=== PATIENT | male | born 1945 | race Two or more races ===

== ENCOUNTER 2020-02-14 03:08 | Inpatient (IN) | payer MEDICARE ==
[~2020-02-14] VITALS: Ht 175.3 cm; Wt 79.8 kg
[2020-02-14] MEDS ORDERED: ACETAMINOPHEN 325 MG TABLET PO PRN (04:00)
[2020-02-14] MEDS ORDERED: TEMAZEPAM 7.5 MG CAPSULE PO PRN (04:00)
[2020-02-14] MEDS ORDERED: MAGNESIUM HYDROXIDE 30 ML UDC PO PRN (04:00)
[2020-02-14] MEDS ORDERED: MULT-1196 PO (04:27)
[2020-02-14] MEDS ORDERED: OMEP40CA13 PO ×2 (04:29→04:30)
[2020-02-14] MEDS ORDERED: BLOOD SUGAR DIAGNOSTIC 1 EACH STRIP IN ONE (04:30)
[2020-02-14] MEDS ORDERED: OXYB10TA30 PO (04:32)
[2020-02-14] MEDS ORDERED: TELM40TA2 PO (04:33)
[2020-02-14] MEDS ORDERED: CHOL400T11 PO (04:35)
[2020-02-14] MEDS ORDERED: HYDR5TAB13 PO (04:36)
--- NOTE | 2020-02-14 05:41 | NUR ---
GPS ACRYLIC FABRICATOR NOTE: ADMITTED A 75 Y/O MALE ON 5150 FOR DTS. HOLD PLACED 02/13/2020@1430 AT [facility]. PER HOLD, PT CAME TO [facility] FOR RIGHT FLANK PAIN, SHARP, INTERMITTENT, GETS WORSE WITH MOVEMENTS AND URINATION. PT HAS BEEN TO THE SAME ED SEVERAL TIMES AND CT SCAN SHOWS NO KIDNEY STONES. DURING EVALUATION BY THE EMERGENCY DEPARTMENT MD, PT EXPRESSED THAT HE HAS BEEN HAVING THOUGHTS OF SUICIDE OVER THE LAST FEW MONTHS DUE TO CHRONIC PAIN, AND HAS BEEN THINKING "I WISH I COULD JUST END IT ALL RIGHT NOW". WHEN ASKED ABOUT SPECIFIC THOUGHTS, PT STATES HE HAS THOUGHTS OF JUMPING OFF A MEL. UPON FACE TO FACE EVALUATION IN THIS UNIT, PT IS A/O 3, BLUNT AFFECT, TALKATIVE BUT COOPERATIVE, STEADY GAIT, OBEYS COMMAND. UNABLE TO SIGN ADMISSION PAPERS DUE TO BEING TIRED. BLOOD SUGAR 127, MRSA DONE, SKIN ASSESSMENT DONE AND PICTURE PLACED IN CHART. PT MEDICAL HX INCLUDES HTN, BPH, CHRONIC NONSPECIFIC ABDOMINAL PAIN, ADRENAL INSUFFICIENCY, AND PANHYPOPITUITARISM. PT BELONGING WERE CHECKED AND PLACED IN SAFE, NO CONTRABANDS. PT RIGHTS DISCUSSED AND PT HANDBOOK PROVIDED. GUIDE TO PRESCRIPTION MEDICATION GIVEN. PT WILL BE UNDER THE CARE OF DR RAE PSYCHIATRIST AND DR LYNNE INTERNAL MEDICAINE. ORIENTED TO UNIT, STAFF, DOCTORS, CARE PLAN AND UNIT POLICIES. BOTH DOCTORS NOTIFIED OF PT ADMISSION. MEDICATION RECONCILIATION DONE. Q15 MINUTES CHECKS INITIATED, FALL AND SAFETY PRECAUTION INITIATED, CARE PLAN STARTED. CALL LIGHT WITHIN REACH, BED IN LOW LOCKED POSITION. FLUID AND SNACKS GIVEN TOLERATED. WILL MONITOR PT FOR MOOD, SAFETY AND BEHAVIOR. WILL ENDORSE TO ONCOMING DAY SHIFT NURSE.
[2020-02-14 06:10] VITALS: BP 132/77
[2020-02-14 08:00] VITALS: BP 124/85
--- NOTE | 2020-02-14 09:00 | NUR ---
RN NOTE- PT IN NARVAEZ AND ROOM, ASKING ABOUT MEDS AND MD EVALUATION, ALERT ORIENTED PERSON PLACE TIME. DENYING SI HI AH VH, PO INTAKE GOOD, SEEMS ANXIOUS, DOESN'T UNDERSATAND WHY HES ON 5150. STATES "I WAS ONLY JOKING AROUND WHEN I SAID I WANTED TO JUMP OFF A MEL"
--- NOTE | 2020-02-14 14:15 | NUR ---
DR GAMBINO AND DR RAE HERE TO SEE PT
[2020-02-14] MEDS: SERTRALINE HCL 50 MG TABLET PO SCH (15:22)
[2020-02-14 16:00] VITALS: BP 129/77
[2020-02-14] MEDS: HYDROCORTISONE 5 MG TABLET PO SCH (16:13)
[2020-02-14] MEDS: OXYBUTYNIN CHLORIDE ER 5 MG TAB PO SCH (17:13)
[2020-02-14] MEDS ORDERED: Medication Not On Formulary EA (Omeprazole 1 CAP) PO SCH (18:00)
[2020-02-14 20:05] VITALS: BP 131/85
[2020-02-15] MEDS: LORAZEPAM 1 MG TABLET PO PRN ×2 (03:07→21:28)
--- NOTE | 2020-02-15 03:09 | NUR ---
GPS RN NOTES: PT WOKE UP AND REPORTED HE HAS ANXIETY. RATES ANXIETY LEVEL 7/10. ATIVAN 1MG/1 TAB GIVEN PO ORDERED AT 0309. WILL CONTINUE TO MONITOR AND ENDORSE TO AM NURSE.
[2020-02-15 08:00] VITALS: BP 149/91
[2020-02-15] MEDS: MULTIPLE VIT (LYCOPENE/FA/MV,CA,IRON,MIN/LUT)1 TAB PO SCH (08:17)
[2020-02-15] MEDS: HYDROCORTISONE 5 MG TABLET PO SCH (08:17)
[2020-02-15] MEDS: PANTOPRAZOLE 40 MG TABLET.DR PO SCH (08:17)
[2020-02-15] MEDS: SERTRALINE HCL 50 MG TABLET PO SCH (08:17)
[2020-02-15] MEDS: OXYBUTYNIN CHLORIDE ER 5 MG TAB PO SCH (08:17)
[2020-02-15] MEDS: CHOLECALCIFEROL 1,000 UNIT TABLET (VIT D3) PO SCH (08:40)
[2020-02-15 09:59] LABS: BASOPHILS % (AUTO) 0.9 % (0.0-2.0); EOSINOPHILS % (AUTO) 4.4 % (0.0-6.0); HEMATOCRIT 36 % (39-51); HEMOGLOBIN 12.3 g/dL (13.5-17.5); LYMPHOCYTES # (AUTO) 1.7 /CMM (0.8-4.8); LYMPHOCYTES % (AUTO) 31.5 % (20.0-44.0); MEAN CORPUSCULAR HGB CONC 34 g/dl (31.0-36.0); MEAN CORPUSCULAR VOLUME 92 fL (80-96); MONOCYTES # (AUTO) 0.5 /CMM (0.1-1.30); MONOCYTES % (AUTO) 9.4 % (2.0-12.0); NEUTROPHILS # (AUTO) 2.8 /CMM (1.8-8.9); NEUTROPHILS % (AUTO) 53.8 % (43.0-81.0); PLATELET COUNT (AUTO) 252 /CMM (150-450); RED BLOOD CELL COUNT(AUTO) 3.88 MIL/uL (4.5-6.0); WHITE BLOOD COUNT (AUTO) 5.2 K/uL (4.3-11.0)
[2020-02-15 10:33] LABS: CALCIUM, SERUM 8.3 mg/dL (8.5-10.1); CREATININE 0.9 mg/dL (0.6-1.3); POTASSIUM 3.6 mmol/L (3.5-5.1)
--- NOTE | 2020-02-15 13:06 | NUR ---
RN-CO: Tylenol 650 mg PO given for pain 01/22.
[2020-02-15] MEDS: LOSARTAN POTASSIUM 50 MG TABLET PO SCH (14:58)
[2020-02-15 16:00] VITALS: BP 133/76
[2020-02-15] MEDS: MAG HYDROX/AL HYDROX/SIMETH 30 ML UDC PO PRN (16:29)
--- NOTE | 2020-02-15 16:29 | NUR ---
RN-CO: MAALOX GIVEN FOR C/O HYPERACIDITY.
[2020-02-15 20:00] VITALS: BP 130/72
--- NOTE | 2020-02-15 21:31 | NUR ---
GPS RN NOTES: ANXIOUS PT C/O OF FEELING ANXIOUS. PT ASKED FOR ATIVAN. ATIVAN ADMINISTERED. PT TOLERATED MEDICATION WELL. CONTINUE TO MONITOR.
[2020-02-16] MEDS: MAG HYDROX/AL HYDROX/SIMETH 30 ML UDC PO PRN (03:12)
--- NOTE | 2020-02-16 03:13 | NUR ---
GPS RN NOTES: INGESTION PT C/O OF INGESTION. PT REQUESTED MAALOX. OFFERED MAALOX PRN ORDERED. PT AGREED AND TOLERATED MEDICATION WELL. CONTINUE TO MONITOR.
[2020-02-16 08:00] VITALS: BP 149/85
[2020-02-16] MEDS: HYDROCORTISONE 5 MG TABLET PO SCH (08:17)
[2020-02-16] MEDS: OXYBUTYNIN CHLORIDE ER 5 MG TAB PO SCH (08:17)
[2020-02-16] MEDS: LOSARTAN POTASSIUM 50 MG TABLET PO SCH (08:18)
[2020-02-16] MEDS: CHOLECALCIFEROL 1,000 UNIT TABLET (VIT D3) PO SCH (08:18)
[2020-02-16] MEDS: PANTOPRAZOLE 40 MG TABLET.DR PO SCH (08:18)
[2020-02-16] MEDS: MULTIPLE VIT (LYCOPENE/FA/MV,CA,IRON,MIN/LUT)1 TAB PO SCH (08:40)
[2020-02-16] MEDS ORDERED: SERTRALINE HCL 50 MG TABLET PO SCH (09:00)
--- NOTE | 2020-02-16 10:42 | NUR ---
INITIAL DISCHARGE PLAN: Pt wishes to return home [address] [place], [address] . Per Clarice [phone] pt is able to return once stable. RAMIN will help form a safe and proper discharge plan in collaboration with .
--- NOTE | 2020-02-16 12:14 | NUR ---
INDIVIDUAL INTERVENTION: SW met with pt at bedside to discuss his discharge plan. Pt states that he is ready to be discharged home as soon as his 72 hour hold expires. Pt states that he does not need to continue to be hospitalized because he is not suicidal and depressed. Pt appears anxious with congruent affect.
--- NOTE | 2020-02-16 13:21 | NUR ---
DISCHARGE NOTE: Pt will be discharged at 4:00pm home [address] [place], [address]. Pts Clarice [phone] will be picking pt up and transporting home. Pts mood is euthymic with congruent affect. Pt denied visual/auditory hallucinations and denied suicidal/homicidal ideation. [facility] Address: [address] [place] [id number] telephonically on Sunday02/18/20 at 8:00am. Pt was also given a referral for follow up with [facility] Address: [address] [place] [address] . The multidisciplinary exit care form was done, printed, signed, and given to the patient.
--- NOTE | 2020-02-16 13:51 | NUR ---
RN-CO: Patient was seen and examined by Dr Juárez (psychiatrist) and ordered to discontinue hold and discharge patient at 1600 noted. PATIENT IS CALM AND COOPERATIVE TO CARE. ALERT AND ORIENTED X4, ABLE TO MAKE NEEDS KNOWN. AFFECT IS APPROPRIATE. DENIED SUICIDAL AND HOMICIDAL IDEATION. PATIENT DENIES AUDITORY AND VISUAL HALLUCINATIONS. NO ACUTE DISTRESS NOTED. MEDICALLY CLEARED FOR DISCHARGE. PT'S SORAIDA [phone] WILL BE PICKING HIM UP VIA PRIVATE CARE. PATIENT SIGNED ALL DISCHARGE PAPERS AFTER I EXPLAINED IT TO HIM. ALL BELONGINGS WILL BE GIVEN BACK TO THE PATIENT. Addendum: 02/16/20 at 1413 by MARY JANE VALDEZ RN RN-CO: Patient stated :" I don't need prescription from the the medical doctor, I still have a lot of medications at home. "
--- NOTE | 2020-02-16 14:11 | NUR ---
RN-CO: Patient stated :" I don't need prescription from the the medical doctor, I still have a lot of medications at home. " '
--- NOTE | 2020-02-16 14:24 | NUR ---
RN-CO: PATIENT WAS SEEN AND EXAMINED BY DR GAMBINO AND MEDICALLY CLEARED HIM FOR DISCHARGE.
[2020-02-16 16:00] VITALS: BP 129/81
== END 2020-02-16 16:30 | disposition home or self-care (01) | DRG 881 ==
LOC: GPS 03:08
PROVIDERS: ADMIT Psychiatry & Neurology Psychiatry; ATTEND Student in an Organized Health Care Education/Training Program
DX: F32.9 Major depressive disorder, single episode, unspecified (principal); E27.40 Unspecified adrenocortical insufficiency; R45.851 Suicidal ideations; I10 Essential (primary) hypertension; D64.9 Anemia, unspecified; N40.0 Benign prostatic hyperplasia without lower urinary tract symptoms
CPT/HCPCS: 36415; 80048-TC; 80061-TC; 82962-TC; 84443-TC; 85025-TC; 87081-TC; 97116-TC; 97530-TC